=== PATIENT | female | born 1940 | race Caucasian/White ===

== ENCOUNTER 2019-07-05 07:29 | Outpatient (CLI) | payer MEDICARE, OTHER, SELFPAY ==
--- NOTE | ~2019-07-05 | MM_ITS ---
EXAMINATION: MM screening [facility] BI w [facility] HISTORY: Screening mammogram TECHNIQUE: Craniocaudal and mediolateral oblique 3-D tomosynthesis images were obtained and synthetic 2-D images were generated. CAD analysis was submitted and interpreted. COMPARISON: 01/16/2015, 01/09/2014, 11/22/2012 BREAST PARENCHYMAL COMPOSITION: There are scattered areas of fibroglandular density. FINDINGS: Scattered benign-appearing calcifications are present. There is no evidence of suspicious m ass, calcification, or architectural distortion to suggest malignancy in either breast. There has bee n no suspicious interval change. IMPRESSION: 1. No mammographic evidence of malignancy. 2. Recommend routine screening mammography in one year. BI-RADS Category 2: Benign finding(s). Reviewed, dictated and finalized at location A.
--- NOTE | ~2019-07-05 | DEXA_ITS ---
Bone Density Report Name: Janell Ji Age: 78 Sex: Female Ethnicity: White Date of : 1940 Indication: osteopenia; parental hip fracture; height loss; cancer; Referring Provider: Gilma Coley Study: Bone densitometry was performed. Exam Date: July 05, 2019 Accession number: [id number] Bone Density: Region BMD T-score Z-score Classification AP Spine (L1, L2, L3) 0.995 -0.2 2.4 Normal Femoral Neck (Left) 0.615 -2.1 0.2 Osteopenia Total Hip (Left) 0.754 -1.5 0.5 Osteopenia Total Hip Bilateral Avg 0.742 -1.7 0.4 Osteopenia Femoral Neck (Right) 0.620 -2.1 0.2 Osteopenia Total Hip (Right) 0.728 -1.8 0.3 Osteopenia World Health Organization criteria for BMD impression classify patients as: Normal (T-score at or above -1.0), Osteopenia (T-score between -1.0 and -2.5), or Osteoporosis (T-score at or below -2.5). 10-year Fracture Risk(1): Major Osteoporotic Fracture 29% Hip Fracture 18% Reported Risk Factors: [place] (), Neck BMD=0.620, BMI=27.0, parental fracture (1) FRAX(R) Version 3.08. Fracture probability calculated for an untreated patient. Fracture probability may be lower if the patient has received treatment. Previous Exams: Region Exam Age BMD T-score BMD Change BMD Change Date g/cm2 vs Baseline vs Previous AP Spine(L1, L2, L3) 07/05/2019 78 0.995 -0.2 0.009(1.0%)# 0.061(6.5%)# 10/22/2011 71 0.934 -0.8 -0.051(-5.2%)# -0.051(-5.2%)# 07/16/2009 68 0.986 -0.3 Total Hip(Left) 07/05/2019 78 0.754 -1.5 0.045(6.3%)# 0.000(0.0%)# 10/22/2011 71 0.753 -1.5 0.045(6.3%)# 0.045(6.3%)# 07/16/2009 68 0.709 -1.9 Total Hip(Right) 07/05/2019 78 0.728 -1.8 0.040(5.8%)# 0.000(0.0%)# 10/22/2011 71 0.728 -1.8 0.040(5.8%)# 0.040(5.8%)# 07/16/2009 68 0.689 -2.1 *Denotes significance at 95% confidence level, LSC for AP Spine = 0.022 g/cm2, LSC for Total Hip = 0.027 g/cm2 Clinical Information Provided by Patient: Parent has had a hip fracture Has used the following medications: Vitamin D, Calcium Has the following medical conditions: Cancer Patient maximum height was 66 Menopause Age: 48 No regular weight bearing exercise Onset of menses at age 12 Number of children 2 Impression: The patient has low bone mass, based on the Left Femoral Neck T-score. The patient has an estimated ten-year risk of hip fracture of 18% and an estimated ten-year risk of major fracture of
== END 2019-07-05 07:30 | disposition home or self-care (01) ==
PROVIDERS: PCP Family Medicine; Visit Provider Family Medicine
DX: Z12.31 Encounter for screening mammogram for malignant neoplasm of breast (principal); M85.9 Disorder of bone density and structure, unspecified; Z78.0 Asymptomatic menopausal state
CPT/HCPCS: 77063; 77067; 77080